=== PATIENT | female | born 1980 | race Caucasian/White ===

== ENCOUNTER 2016-09-19 14:22 | Inpatient (IN) | payer MEDICARE ==
[2016-09-19 15:01] VITALS: O2SAT 100
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
[2016-09-19 17:03] LABS: HEMATOCRIT 32.8 % (34.0-47.0); MEAN CORPUSCULAR HEMOGLOBIN 24.6 pg (27.0-31.0); MEAN CORPUSCULAR HGB CONC 31.9 g/dL (33.0-37.0); RED CELL DISTRIBUTION WIDTH 16.3 % (11.5-14.5); WHITE BLOOD COUNT 6.8 K/uL (4.8-10.8)
[2016-09-19 17:06] LABS: RBC URINE 2 /hpf (0-3); URINE BILIRUBIN NEGATIVE (NEGATIVE); URINE BLOOD NEGATIVE (NEGATIVE); URINE COLOR YELLOW (YELLOW); URINE GLUCOSE (UA) NEG (Normal); URINE KETONE TRACE mg/dL (NEGATIVE); URINE LEUKOCYTE ESTERASE NEG Leu/uL (Negative); URINE PROTEIN NEGATIVE (NEGATIVE); URINE UROBILINOGEN 0.2-1.0 mg/dL (0.2-1.0); WBC URINE 1 /hpf (0-5)
[2016-09-19 17:15] LABS: ALB/GLOB RATIO 1.2 (1.0-2.1); ALCOHOL SERUM < 10 mg/dl (0-10); ALKALINE PHOSPHATASE 95 U/L (38-126); ALT/SGPT 18 U/L (9-52); AST/SGOT 25 U/L (14-36); BILIRUBIN,TOTAL 0.2 mg/dl (0.2-1.3); BLOOD UREA NITROGEN 12 mg/dl (7-17); CALCIUM 8.7 mg/dL (8.4-10.2); CARBON DIOXIDE 24 mmol/L (22-30); CHLORIDE 106 mmol/L (98-107); GFR AFRICAN-AMERICAN > 60; GLUCOSE,RANDOM 135 mg/dL (65-105); POTASSIUM 3.9 MMOL/L (3.6-5.0); SODIUM 144 mmol/l (132-148); TOTAL PROTEIN 7.4 G/DL (6.3-8.2)
[2016-09-19] MEDS ORDERED: DiphenhydrAMINE 50 mg/ml Inj IM PRN (20:00)
[2016-09-19] MEDS ORDERED: Alum-Mag Hydrox-Simethicone Susp (30 mL) PO PRN (20:00)
[2016-09-19] MEDS ORDERED: Magnesium Hydroxide Susp 30 ml UD PO PRN (20:00)
[2016-09-20 07:53] LABS: T4 4.06 ug/dl (5.5-11.0)
[2016-09-20 08:06] LABS: THYROID STIMULATING HORMONE 2.02 mIU/ML (0.46-4.68)
[2016-09-20] MEDS: Venlafaxine 150 mg ER Cap PO SCH ×2 (09:27→17:54)
--- NOTE | 2016-09-20 19:21 | CARD ---
APPROVED REPORT EKG Measurement Heart [id number] <Conclusion> Normal sinus rhythm Nonspecific T wave abnormality Abnormal ECG
[2016-09-20] MEDS ORDERED: Apap-Butalbital-Caffeine 325-50-40mg Tab PO STA (20:46)
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
[2016-09-21] MEDS: Venlafaxine 150 mg ER Cap PO SCH ×2 (09:53→18:42)
--- NOTE | 2016-09-21 13:06 | PCM.PYCHPN ---
Psychiatric Progress Note - Psychiatric Progress Note Patient seen today, length of contact: with portuguese speaking staff Patient Chief Complaint: i want to go to [facility] tomorrow Problems Identified/Issues Discussed: pt asking to leave. states she feels better. she remains religiously preoccupied. she is upset that doctor sent her here. she is with odd affect. pt is on massive dosages of medications. Medication Change: Yes (will dc the qid seroquel 400mg as this is way outside of approved range) Medical Record Reviewed: Yes Mental Status Examination - Cognitive Function Orientation: Person, Place, Situation, Time Memory: Intact Attention: WNL Concentration: Poor Association: Loose Fund of Knowledge: WNL Decription of patient's judgement and insights: poor i/j - Mood Mood: Anxious, Neutral - Affect Affect: Blunted (odd affect) - Speech Speech: Appropriate - Formal Thought Process Formal Thought Process: Paranoia, Loosening of associations, Other (religiously preoccupied) - Suicidal Ideation Suicidal Ideation: No - Homicidal Ideation Homicidal Ideation: No Goal/Treatment Plan - Goal/Treatment Plan Need for Continued Stay: Remain at risks for inpatient hospitalization, Severe functional impairment Progress Toward Problem(s) and Goals/Treatment Plan: schizoaffective disorder anxiety patient is on very high dosages of medication her seroquel dose is over 1600mg her klonopin dose is 5mg she is on maximum dose of abilify she is on high dosages of wellbutrin and effexor based on her presenting symptoms with this current medication program, pt will need to be longer in the hospital to make safe and appropriate medication changes will start by stopping qid seroquel dose and only leaving hs dose would like to lower klonopin and start to lower the wellbutrin will screen for involuntary hospitalization as pt lacks insight and has grossly impaired functioning and is risk for harm to self. Estimated Date of D/C: 09/27/16
--- NOTE | 2016-09-21 14:12 | CP.PCM.CON ---
History of Present Illness - History of Present Illness History of Present Illness: Reason for Consult: per protocol HPI: 36 year old female with PMH bipolar and depression, migraines, states she was admitted because she wanted to get her medications fixed. She otherwise has no complaints at this time. No CP, SOB, urinary sx, abd pain, n/v/c/d. ROS: Per HPI, all other systems reviewed negative by me PMH: bipolar and depression, migraines PSH: hysterectomy, CSection FH: DM HTN SH: denies tobacco, etoh, ivdu ALLERGIES: NKDA MEDICATIONS: reviewed and as below Surrogate Decision Maker: in chart GENERAL APPEARANCE: Well developed, well nourished, alert and cooperative, and appears to be in no acute distress. HEAD: normocephalic, atraumatic EYES: PERRL, EOMI. Vision is grossly intact. EARS: External auditory canals clear, hearing grossly intact. NOSE: No nasal discharge. THROAT: Oral cavity and pharynx normal. No inflammation, swelling, exudate, or lesions. NECK: Neck supple, non-tender without lymphadenopathy, masses or thyromegaly. CARDIAC: Normal S1 and S2. No S3, S4 or murmurs. Rhythm is regular. LUNGS: Clear to auscultation and percussion without rales, rhonchi, wheezing or diminished breath sounds. ABDOMEN: Positive bowel sounds. Soft, nondistended, nontender. No guarding or rebound. No masses. MUSKULOSKELETAL: Adequately aligned spine. ROM intact spine and extremities. BACK: Examination of the spine reveals no spinal deformity, symmetry of spinal muscles, EXTREMITIES: No significant deformity or joint abnormality. No edema. NEUROLOGICAL: CN II-XII intact. Strength and sensation symmetric and intact throughout. Reflexes 2+ throughout. Abnormal gait, with cane. SKIN: Skin normal color, texture and turgor with no lesions or eruptions. PSYCHIATRIC: The mental examination revealed the patient was oriented to person , place, and time. Normal affect. LABS: 09/19/16 16:48 09/19/16 16:48 ACTIVE MEDICATIONS Allergies No Known Allergies Allergy (Verified 09/20/16 05:03) Height & Weight Height 5 ft Weight 189 lb Start Date/Time Active Medications 09/19/16 20:00 Acetaminophen [Tylenol 325mg tab] 650 mg PO Q4 PRN Aluminum Hydroxide/Magnesium [Maalox Plus 30 ml] 30 ml PO Q4 PRN DiphenhydrAMINE [Benadryl] 50 mg IM Q6 PRN Haloperidol Lactate [Haldol] 5 mg IM Q4 PRN Haloperidol [Haldol] 5 mg PO Q4 PRN LORazepam [Ativan] 2 mg IM Q4 PRN LORazepam [Ativan] 2 mg PO Q4 PRN Magnesium Hydroxide [Milk Of Magnesia] 30 ml PO HS PRN 09/19/16 20:03 DiphenhydrAMINE [Benadryl] 50 mg PO HS PRN 09/19/16 22:00 QUEtiapine [SEROquel] 400 mg PO HS clonazePAM [Klonopin] 2 mg PO HS 09/20/16 09:00 ARIPiprazole [Abilify] 30 mg PO DAILY Venlafaxine [Effexor XR] 150 mg PO BID buPROPion XL [Wellbutrin XL] 300 mg PO DAILY clonazePAM [Klonopin] 2 mg PO QAM 09/21/16 14:00 clonazePAM [Klonopin] 0.5 mg PO 1400 09/21/16 17:00 Gabapentin [Neurontin] 400 mg PO QID 36 year old female with PMH bipolar and depression, migraines, states she was admitted because she wanted to get her medications fixed. She otherwise has no complaints at this time. No CP, SOB, urinary sx, abd pain, n/v/c/d. Schizoaffective Disorder Anxiety -Management per psychiatric team Past Patient History - Infectious Disease Hx of Infectious Diseases: None - Past Medical History & Family History Past Medical History?: Yes - Past Social History Smoking Status: Never Smoked - CARDIAC Hx Hypercholesterolemia: Yes Hx Hypertension: Yes - PULMONARY Hx Respiratory Disorders: No Hx Tuberculosis: No - NEUROLOGICAL Hx Migraine: Yes - HEENT Hx HEENT Problems: No - RENAL Hx Chronic Kidney Disease: No - ENDOCRINE/METABOLIC Hx Endocrine Disorders: Yes Other/Comment: previously diabetic before gastric bypass - HEMATOLOGICAL/ONCOLOGICAL Hx Anemia: Yes Hx Blood Transfusions: Yes - INTEGUMENTARY Hx Dermatological Problems: No - MUSCULOSKELETAL/RHEUMATOLOGICAL Hx Musculoskeletal Disorders: No Hx Arthritis: Yes Hx Back Pain: Yes Hx Falls: Yes - GASTROINTESTINAL Hx Gastrointestinal Disorders: No Hx Constipation: Yes - GENITOURINARY/GYNECOLOGICAL Hx Genitourinary Disorders: No - PSYCHIATRIC Hx Anxiety: Yes Hx Bipolar Disorder: Yes Hx Depression: Yes Hx Substance Use: No - SURGICAL HISTORY Hx Section: Yes (x3) Hx Gastric Bypass Surgery: Yes (age 32) Hx Hysterectomy: Yes (age 33) Other/Comment: Gastric bypass. Landy you. Liposuction - ANESTHESIA Hx Anesthesia: Yes Hx Anesthesia Reactions: No Meds Allergies/Adverse Reactions: Allergies Allergy/AdvReac Type Severity Reaction Status Date / Time No Known Allergies Allergy Verified 09/20/16 05:03 - Medications Medications: Current Medications Acetaminophen (Tylenol 325mg Tab) 650 mg PO Q4 PRN PRN Reason: pain 1-7 Al Hydrox/Mg Hydrox/Simethicone (Maalox Plus 30 Ml) 30 ml PO Q4 PRN PRN Reason: Dyspepsia Aripiprazole (Abilify) 30 mg PO DAILY [facility] Last Admin: 09/21/16 09:52 Dose: 30 mg Clonazepam (Klonopin) 2 mg PO HS [facility] Last Admin: 09/20/16 21:00 Dose: 2 mg Clonazepam (Klonopin) 2 mg PO QAM [facility] Last Admin: 09/21/16 09:57 Dose: 2 mg Clonazepam (Klonopin) 0.5 mg PO 1400 [facility] Diphenhydramine HCl (Benadryl) 50 mg IM Q6 PRN PRN Reason: Extrapyramidal S/S Unable PO Diphenhydramine HCl (Benadryl) 50 mg PO HS PRN PRN Reason: Sleep Gabapentin (Neurontin) 400 mg PO QID [facility] Haloperidol (Haldol) 5 mg PO Q4 PRN PRN Reason: Agitation Haloperidol Lactate (Haldol) 5 mg IM Q4 PRN PRN Reason: Agitation, Unable to Take PO Home Med (Bupropion Xl [Wellbutrin Xl]) 300 mg PO DAILY [facility] Lorazepam (Ativan) 2 mg PO Q4 PRN PRN Reason: Anxiety/Agitation Lorazepam (Ativan) 2 mg IM Q4 PRN PRN Reason: Anxiety/Agitation,Unable PO Magnesium Hydroxide (Milk Of Magnesia) 30 ml PO HS PRN PRN Reason: Constipation Quetiapine Fumarate (Seroquel) 400 mg PO HS [facility] Last Admin: 09/20/16 21:00 Dose: 400 mg Venlafaxine HCl (Effexor Xr) 150 mg PO BID [facility] Last Admin: 09/21/16 09:53 Dose: 150 mg Results - Vital Signs Recent Vital Signs: Last Vital Signs Temp 98.1 F 09/21/16 06:00 Pulse 84 09/21/16 06:00 Resp 18 09/21/16 06:00 BP 139/87 09/21/16 06:00 Pulse Ox 100 09/19/16 18:05 - Labs Result Diagrams: 09/19/16 16:48 09/19/16 16:48 Labs: Laboratory Results - last 24 hr 09/20/16 09/20/16 07:06 13:45 Hemoglobin A1c 6.4 Urine HCG, Qual Negative RPR Nonreactive
[2016-09-22 08:09] LABS: ALB/GLOB RATIO 1.2 (1.0-2.1); ALKALINE PHOSPHATASE 80 U/L (38-126); ALT/SGPT 14 U/L (9-52); AST/SGOT 22 U/L (14-36); BILIRUBIN,TOTAL 0.3 mg/dl (0.2-1.3); BLOOD UREA NITROGEN 17 mg/dl (7-17); CARBON DIOXIDE 28 mmol/L (22-30); CHLORIDE 105 mmol/L (98-107); GFR AFRICAN-AMERICAN > 60; GLUCOSE,RANDOM 88 mg/dL (65-105); POTASSIUM 4.3 MMOL/L (3.6-5.0); SODIUM 143 mmol/l (132-148); TOTAL PROTEIN 6.8 G/DL (6.3-8.2)
[2016-09-22 08:22] LABS: T4 4.24 ug/dl (5.5-11.0)
[2016-09-22 08:36] LABS: THYROID STIMULATING HORMONE 2.32 mIU/ML (0.46-4.68)
[2016-09-22] MEDS: Venlafaxine 150 mg ER Cap PO SCH ×2 (09:47→16:30)
--- NOTE | 2016-09-22 14:00 | PCM.PYCHPN ---
Psychiatric Progress Note - Psychiatric Progress Note Patient seen today, length of contact: with guyanese speaking staff Patient Chief Complaint: i want to go Problems Identified/Issues Discussed: pt retracted 48 hour notice. pt paranoid. pt is anxious. pt thoughts are somewhat disorganized. no c/o medication side effects. Medication Change: Yes (dc wellbutrin. start to lower klonopin) Medical Record Reviewed: Yes Mental Status Examination - Cognitive Function Orientation: Person, Place, Situation, Time Memory: Intact Attention: WNL Concentration: Poor Association: Loose Fund of Knowledge: WNL - Mood Mood: Anxious, Neutral - Affect Affect: Blunted (odd affect) - Speech Speech: Appropriate - Formal Thought Process Formal Thought Process: Paranoia, Loosening of associations, Other (religiously preoccupied) - Suicidal Ideation Suicidal Ideation: No - Homicidal Ideation Homicidal Ideation: No Goal/Treatment Plan - Goal/Treatment Plan Need for Continued Stay: Remain at risks for inpatient hospitalization, Severe functional impairment Progress Toward Problem(s) and Goals/Treatment Plan: schizoaffective disorder anxiety patient is on very high dosages of medication will dc wellbutrin as it may contribute to her restlessness anxiety will start to taper off klonopin will consider lowering abilify pt needs medication changes. she has withdrawn her 48 hr notice Estimated Date of D/C: 09/27/16
--- NOTE | 2016-09-22 15:14 | PN ---
DATE: 09/22/2016 ROOM: 313 SUBJECTIVE: This is a 36-year-old female with major depressive disorder and associated behavioral di sturbances and is now being followed closely for metabolic management. She had initial abnormal thyr oid function studies, but has been evaluated to be clinically euthyroid at this time. Biochemically, her thyroid study showed a T4 of 4.06 with a TSH of 2.02 as noted. Her chemistry showed a BUN of 12 , sodium 144, potassium 3.9, chloride 106, CO2 of 24, glucose 135, and creatinine 0.6. Her hemoglobi n A1c is 6.4%, indicative of early type 2 prediabetes as noted. She has the so-called acute sick eut hyroid syndrome, which is temporary and should improve as her clinical condition improves accordingly . There is no indication at this time for any kind of thyroid pharmacotherapy. We will obtain seria l chemistries and supplement accordingly as needed. We will also obtain serial thyroid studies and kenna roberts her thyroid fluctuations thereof. We will follow. Noelle Michael MD cc: [id number] TT: 09/22/2016 15:13:36 Confirmation # [id number] Dictation # [id number] mn
--- NOTE | 2016-09-22 16:05 | RAD ---
PROCEDURE: CHEST RADIOGRAPH, 1 VIEW HISTORY: r/o disease process COMPARISON: None available. FINDINGS: LUNGS: Clear. PLEURA: No pneumothorax or pleural fluid seen. CARDIOVASCULAR: Normal. OSSEOUS STRUCTURES: No significant abnormalities. VISUALIZED UPPER ABDOMEN: Normal. OTHER FINDINGS: None. IMPRESSION: No active disease.
--- NOTE | 2016-09-23 08:12 | CON ---
DATE: 09/21/2016 ENDOCRINOLOGY CONSULT LOCATION: Room 313. HISTORY OF PRESENT ILLNESS: This is a 36-year-old female with known history of with known hist ory of and chronic schizoaffective disorder and recent major depression abnormal and ___ __. PAST MEDICAL HISTORY: Recent medication and unsure if it . FAMILY HISTORY: ____ . SOCIAL HISTORY: The patient has supportive family. Normal and currently lives with her boyfri end. at this time. normal. EARS, NOSE AND THROAT: Otherwise normal. NECK: Supple. Thyroid gland is normal size. No carotid bruit. No cervical adenopathy. CARDIOPULMONARY: Adynamic precordium . ABDOMEN: Flat, soft with positive bowel sounds. EXTREMITIES: No peripheral edema. Pulses are +2 bilaterally. LABORATORY DATA: The chemistry showed a BUN of 12, sodium 144, potassium 3.9, chloride 106, CO2 24, glucose 135, and creatinine 0.6. Her hemoglobin A1c is 6.4. Her thyroid level showed a T4 of 4.06 w ith a TSH of 2.02. ASSESSMENT: This is a 36-year-old female with major depression, currently undergoing psychiatric evelia luation and management. Has also been evaluated to be clinically euthyroid also biochemically euthyr oid, with evidence of the so-called acute sick euthyroid syndrome. management we will do a com prehensive thyroid hormonal profile with total/free T4 and TSH to be done once again tomorrow as orde red. We will add thyroid peroxidase antibody, which will confirm and the presence of underlyin g thyroid autoimmunity. There is no indication at this time for any kind of thyroid pharmacotherapy. Noelle Michael MD cc: [id number] TT: 09/21/2016 11:48:21 Confirmation # [id number] Dictation # [id number]
[2016-09-23] MEDS: Venlafaxine 150 mg ER Cap PO SCH ×2 (09:08→16:34)
--- NOTE | 2016-09-23 13:15 | PCM.PYCHPN ---
Psychiatric Progress Note - Psychiatric Progress Note Patient seen today, length of contact: Patient evaluated, case discussed with team, chart reviewed, 35 min Patient Chief Complaint: "I'm feeling less depressed." Problems Identified/Issues Discussed: Patient reports that she is improving clinically. She no longer feels depressed and is less anxious. She reports that she is not experiencing psychotic features. She feels that she is ready to be discharged tomorrow. She does not have any ideation to harm herself or others. Medication Change: Yes (Taper Klonopin) Medical Record Reviewed: Yes Mental Status Examination - Cognitive Function Orientation: Person, Place, Situation, Time Memory: Intact Attention: WNL Concentration: WNL Association: WNL Fund of Knowledge: [facility] Decription of patient's judgement and insights: Fair I/J - Mood Mood: Neutral - Affect Affect: Constricted - Speech Speech: Appropriate - Formal Thought Process Formal Thought Process: No Impairment Psychotic Thoughts and Behaviors: Denies AH/VH - Suicidal Ideation Suicidal Ideation: No - Homicidal Ideation Homicidal Ideation: No Goal/Treatment Plan - Goal/Treatment Plan Need for Continued Stay: Remain at risks for inpatient hospitalization, Severe functional impairment Progress Toward Problem(s) and Goals/Treatment Plan: 36 yo female with self reported h/o major depressive disorder and generalized anxiety, r/o schizoaffective disorder, now reporting improvement in her depressive and anxiety symptoms. -Continue with Abilify 30 mg PO Daily, Venlafaxine 150 mg PO BID, Seroquel 400 mg PO HS -Wellbutrin stopped -Taper Klonopin to 1 mg PO Q12 hrs -Likely discharge to home tomorrow if her symptoms continue to improve clinically -Individual, group and milieu tx Estimated Date of D/C: 09/24/16
--- NOTE | 2016-09-23 13:53 | PN ---
DATE: 09/23/2016 ROOM: [facility]. This is a 36-year-old female with major depression and supervening insomnia and generalized body weak ness with behavioral disturbances and is now being followed closely for metabolic management. She al so remains clinically euthyroid at this time and biochemically her thyroid study showed a T4 of 4.24 and a free T4 of 0.51, both of which are slightly low at this time and her TSH is 2.32. Biochemicall y, she is actually euthyroid with low normal total and free T4 as expected in the presence of the so- called acute sick euthyroid syndrome. She will not require any kind of thyroid pharmacotherapy at th is time, but we will observe her serial thyroid studies and expect normalization of the aforementione d indices as her clinical condition improves. No indication at this time, as mentioned, for any kind of thyroid pharmacotherapy. We will obtain serial chemistries and supplement accordingly as needed. We will follow. Her latest chemistries showed a BUN of 17, sodium 143, potassium 4.3, chloride 105 , CO2 28, glucose 88 and creatinine 0.7. Noelle Michael MD cc: [id number] TT: 09/23/2016 13:53:16 Confirmation # [id number] Dictation # [id number]
[2016-09-24 06:02] VITALS: BP 125/84; PULSE 77; RESP 18; TEMP 97.5
--- NOTE | 2016-09-24 08:02 | PCM.PYCHDC ---
Mental Status Examination - Mental Status Examination Orientation: Person, Place, Situation, Time Memory: Intact Mood: Neutral Affect: Broad Speech: Appropriate Attention: WNL Concentration: WNL Association: WNL Fund of Knowledge: WNL Formal Thought Process: No Impairment Description of patient's judgement and insight: Good I/J Psychotic Thoughts and Behaviors: Denies AH/VH/paranoia/delusions Suicidal Ideation: No Current Homicidal Ideation?: No Discharge Summary - Discharge Note Reason for Hospitalization: 36 year old female with PMH bipolar and depression, migraines, states she was admitted because she wanted to get her medications fixed. She otherwise has no complaints at this time. No CP, SOB, urinary sx, abd pain, n/v/c/d. ROS: Per HPI, all other systems reviewed negative by me PMH: self reported h/o bipolar and depression, migraines PSH: hysterectomy, CSection FH: DM HTN SH: denies tobacco, etoh, ivdu ALLERGIES: NKDA Surrogate Decision Maker: in chart Psychiatric History (includes Medical, Family, Personal Hx): medication, evaluations, psychotherapy Laboratory Data: Abnormal Lab Results 09/22/16 06:30 Thyroperoxidase Ab 5 Consultations:: List each consultation separately and include: 1. Reason for request. 2. Findings. 3. Follow-up Consultations: Medicine consult- no acute changes in medications Summary of Hospital Course include:: 1. Description of specific treatment plan utilized for patients during their course of treatmen. 2. Summarize the time- course for resolution of acute symptoms and/or regressed behaviors. 3. Describe issues identified and worked on during hospitalization. 4. Describe medication utilized. 5. Describe medical problems identified and treated. 6. Reassessment of suicide risk Summary of Hospital Course: Patient was admitted to psychiatry. She participated in individual and group therapies. She was tapered off the Wellbutrin and the Klonopin was tapers from a total of 5 mg /day to 2 mg/day. She was continued on Abilify, Seroquel and Effexor. She no longer reports depressive or anxiety symptoms and is psychiatrically stable for discharge with continued outpatient follow-up. - Final Diagnosis (DSM 5) Condition upon Discharge: GOOD DSM 5: Schizoaffective Disorder Disposition: HOME/ ROUTINE Follow-up Treatment Plan: 36 yo female with self reported h/o major depressive disorder vs bipolar disorder and generalized anxiety, likely has schizoaffective disorder given her past severity of symptoms, now reporting improvement in her depressive and anxiety symptoms. Patient is now psychiatrically stable for discharge. -Continue with Abilify 30 mg PO Daily, Venlafaxine 150 mg PO BID, Seroquel 400 mg PO HS -Wellbutrin stopped -Continue tapered Klonopin 1 mg PO Q12 hrs -Discharge to home with outpatient follow-up Discharge >35 minutes Prescriptions/Medication Reconciliation: Aripiprazole [Abilify] 30 mg PO DAILY #14 tablet Venlafaxine [Effexor XR] 150 mg PO BID #28 cer clonazePAM [Klonopin] 1 mg PO Q12 #28 tab Gabapentin [Neurontin] 400 mg PO QID #56 cap Quetiapine Fumarate [Seroquel] 400 mg PO HS #14 tablet - Smoking Cessation Smoking Cessation Medication prescribed: No Reason for not providing: Not indicated - Antipsychotic Medications Pt discharged on 2 or more routine antipsychotic medications: Yes - Justification for 2 or more meds Failed 3 or more trials of Monotherapy: List medications: Patient has been on several antipsychotics in the past, was admitted on 2 antipsychotics from her primary psychiatrist and will be discharged on 2 antipsychotics as she is currently psychiatrically stable and modifying these medications may cause her to decompensate.
[2016-09-24] MEDS: Venlafaxine 150 mg ER Cap PO SCH (08:41)
== END 2016-09-24 11:17 | disposition home or self-care (01) | DRG 885 ==
LOC: H.ER 14:22 → H.ERHOLD 17:38 → H.STEP 19:37
PROVIDERS: ADMIT Psychiatry & Neurology Psychiatry; ATTEND Psychiatry & Neurology Psychiatry
PROC: GZ51ZZZ Individual Psychotherapy, Behavioral (ICD-10-PCS; principal; 2016-09-19)
DX: F32.1 Major depressive disorder, single episode, moderate (principal); E11.9 Type 2 diabetes mellitus without complications; I10 Essential (primary) hypertension; F43.10 Post-traumatic stress disorder, unspecified; F25.9 Schizoaffective disorder, unspecified; E78.00 Pure hypercholesterolemia, unspecified; Z98.84 Bariatric surgery status; Z90.710 Acquired absence of both cervix and uterus; F31.9 Bipolar disorder, unspecified; G43.909 Migraine, unspecified, not intractable, without status migrainosus; E07.81 Sick-euthyroid syndrome; F41.1 Generalized anxiety disorder; G47.00 Insomnia, unspecified